=== PATIENT | male | born 1990 | race Two or more races ===

== ENCOUNTER 2024-07-19 09:16 | Emergency (ER) | payer OTHER ==
[~2024-07-19] VITALS: Ht 177.8 cm; Wt 86.2 kg
[2024-07-19] MEDS ORDERED: ONDANSETRON HCL/PF 4 MG/2 ML VIAL ONE (09:36)
[2024-07-19] MEDS ORDERED: FAMOTIDINE/PF INJ 20 MG/2 ML VIAL IV ONE (09:37)
[2024-07-19] MEDS: IV NS 0.9% 1,000 ML BAG IV ONE (09:48)
[2024-07-19] MEDS: ONDANSETRON HCL/PF 4 MG/2 ML VIAL IVP ONE (09:49)
[2024-07-19] MEDS: FAMOTIDINE/PF INJ 20 MG/2 ML VIAL IV ONE (09:49)
[2024-07-19 09:52] LABS: BASOPHILS # (AUTO) 0.1 K/uL (0.0-0.2); BASOPHILS % (AUTO) 0.6 % (0.0-2.0); HEMATOCRIT 47 % (39-51); HEMOGLOBIN 16.5 g/dL (13.5-17.5); LYMPHOCYTES # (AUTO) 1.3 K/uL (0.8-4.8); LYMPHOCYTES % (AUTO) 13.8 % (20.0-44.0); MEAN CORPUSCULAR HEMOGLOBIN 31 PG (26.0-33.0); MEAN CORPUSCULAR HGB CONC 35 g/dl (31.0-36.0); MEAN CORPUSCULAR VOLUME 87 fL (80-96); MONOCYTES # (AUTO) 0.7 K/uL (0.1-1.30); MONOCYTES % (AUTO) 7.5 % (2.0-12.0); NEUTROPHILS # (AUTO) 7.2 K/uL (1.8-8.9); NEUTROPHILS % (AUTO) 78.1 % (43.0-81.0); PLATELET COUNT (AUTO) 500 K/uL (150-450); RED BLOOD CELL COUNT(AUTO) 5.39 MIL/uL (4.5-6.0); RED CELL DISTRIBUTION WIDTH 13.9 % (11.5-15.0); WHITE BLOOD COUNT (AUTO) 9.2 K/uL (4.3-11.0)
[2024-07-19 10:13] LABS: ALBUMIN 4.8 g/dL (3.4-5.0); BILIRUBIN,DIRECT 0.3 mg/dL (0.0-0.2); BILIRUBIN,TOTAL 1.4 mg/dL (0.2-1.0); CALCIUM, SERUM 9.7 mg/dL (8.5-10.1); CREATININE 1.5 mg/dL (0.6-1.3); POTASSIUM 2.9 mmol/L (3.5-5.1); TOTAL PROTEIN, SERUM 9.3 g/dL (6.4-8.2)
[2024-07-19] MEDS ORDERED: POTASSIUM CHLORIDE 20 MEQ POWDER PACKET ONE (10:37)
[2024-07-19] MEDS: POTASSIUM CHLORIDE 20 MEQ POWDER PACKET PO ONE (10:43)
[2024-07-19] MEDS ORDERED: ONDA4TAB5 PO (10:48)
[2024-07-19 11:03] VITALS: BP 145/97; TEMP 98.5; O2SAT 99
== END 2024-07-19 11:04 | disposition home or self-care (01) ==
LOC: ER 09:28
DX: R11.2 Nausea with vomiting, unspecified (principal); R10.84 Generalized abdominal pain
CPT/HCPCS: 99285; 74176; 96374; 96361; 96375; 85025; 80048; 83690; 80076; J3490; J2405; J7030

== ENCOUNTER 2024-07-20 13:39 | Emergency (ER) | payer OTHER ==
[~2024-07-20] VITALS: Ht 175.3 cm; Wt 83.0 kg
[~2024-07-20 13:39] MED LIST: ONDA4TAB5 PO
[2024-07-20] MEDS ORDERED: FAMOTIDINE/PF INJ 20 MG/2 ML VIAL IV ONE (14:37)
[2024-07-20] MEDS ORDERED: ONDANSETRON HCL/PF 4 MG/2 ML VIAL ONE (14:37)
[2024-07-20 14:44] LABS: BASOPHILS % (AUTO) 0.4 % (0.0-2.0); EOSINOPHILS % (AUTO) 0.1 % (0.0-6.0); HEMATOCRIT 48 % (39-51); HEMOGLOBIN 16.7 g/dL (13.5-17.5); LYMPHOCYTES # (AUTO) 1.6 K/uL (0.8-4.8); LYMPHOCYTES % (AUTO) 14.2 % (20.0-44.0); MEAN CORPUSCULAR HEMOGLOBIN 30 PG (26.0-33.0); MEAN CORPUSCULAR HGB CONC 35 g/dl (31.0-36.0); MEAN CORPUSCULAR VOLUME 86 fL (80-96); MONOCYTES # (AUTO) 0.9 K/uL (0.1-1.30); MONOCYTES % (AUTO) 7.7 % (2.0-12.0); NEUTROPHILS # (AUTO) 8.7 K/uL (1.8-8.9); NEUTROPHILS % (AUTO) 77.6 % (43.0-81.0); PLATELET COUNT (AUTO) 477 K/uL (150-450); RED BLOOD CELL COUNT(AUTO) 5.55 MIL/uL (4.5-6.0); RED CELL DISTRIBUTION WIDTH 13.7 % (11.5-15.0); WHITE BLOOD COUNT (AUTO) 11.2 K/uL (4.3-11.0)
[2024-07-20] MEDS: ONDANSETRON HCL/PF 4 MG/2 ML VIAL IVP ONE (14:53)
[2024-07-20] MEDS: IV LR 1000 ML 1,000 ML BAG IV ONE (14:53)
[2024-07-20] MEDS: FAMOTIDINE/PF INJ 20 MG/2 ML VIAL IV ONE (14:53)
[2024-07-20 14:59] LABS: ALBUMIN 5.1 g/dL (3.4-5.0); BILIRUBIN,DIRECT 0.6 mg/dL (0.0-0.2); BILIRUBIN,TOTAL 2.2 mg/dL (0.2-1.0); CREATININE 1.2 mg/dL (0.6-1.3); TOTAL PROTEIN, SERUM 9.5 g/dL (6.4-8.2)
[2024-07-20 15:21] LABS: POTASSIUM 2.8 mmol/L (3.5-5.1)
[2024-07-20] MEDS ORDERED: POTASSIUM CHLORIDE 20 MEQ TAB.PRT.SR PO ONE (15:47)
[2024-07-20] MEDS ORDERED: POTASSIUM CL. PREMIX PERIPHER. 50 ML ONE (15:47)
[2024-07-20] MEDS: POTASSIUM CHLORIDE 10 MEQ/50 ML PREMIXED IVPB FOR PERIPHERAL LINE IV ONE (16:00)
[2024-07-20] MEDS: POTASSIUM CHLORIDE 20 MEQ TAB.PRT.SR PO ONE (16:00)
[2024-07-20 18:18] VITALS: BP 139/88; TEMP 98.3; O2SAT 97
== END 2024-07-20 18:18 | disposition home or self-care (01) ==
LOC: ER 13:39
DX: R11.2 Nausea with vomiting, unspecified (principal); E87.6 Hypokalemia; I10 Essential (primary) hypertension
CPT/HCPCS: 99285; 96365; 76700; 96375; 96361; 85025; 80048; 83690; 80076; 36415; J3490; J2405; J7120 ×2; J3480

== ENCOUNTER 2025-03-17 18:02 | Emergency (ER) | payer MEDICAID ==
[~2025-03-17] VITALS: Ht 175.3 cm; Wt 86.2 kg
[2025-03-17] MEDS ORDERED: ONDANSETRON 4 MG TAB.RAPDIS ONE (18:54)
[2025-03-17] MEDS: PHENOBARBITAL SODIUM 780 MG in IV NS 0.9% 100 ML IV ONE (19:00)
[2025-03-17] MEDS: IV NS 0.9% 1,000 ML BAG IV ONE (19:02)
[2025-03-17] MEDS: ONDANSETRON 4 MG TAB.RAPDIS PO ONE (19:04)
[2025-03-17 19:07] LABS: PLATELET COUNT (AUTO) 391 K/uL (150-450); RED BLOOD CELL COUNT(AUTO) 4.93 MIL/uL (4.5-6.0); RED CELL DISTRIBUTION WIDTH 14.1 % (11.5-15.0); WHITE BLOOD COUNT (AUTO) 11.0 K/uL (4.3-11.0)
[2025-03-17 19:16] LABS: CALCIUM, SERUM 8.9 mg/dL (8.5-10.1); CREATININE 1.2 mg/dL (0.6-1.3); SODIUM SERUM 135 mmol/L (136-145); UREA NITROGEN, BLOOD 20 mg/dL (7-18)
[2025-03-17 19:22] LABS: ALCOHOL, BLOOD < 3 mg/dL (0-10); ASPARTATE AMINOTRANSFERASE 17 U/L (15-37); TOTAL PROTEIN, SERUM 8.9 g/dL (6.4-8.2)
[2025-03-17] MEDS ORDERED: PHENOBARBITAL SODIUM 130 MG/ML VIAL ONE (19:22)
[2025-03-17] MEDS ORDERED: LORAZEPAM INJ 2 MG/ML VIAL ONE (19:39)
[2025-03-17] MEDS: POTASSIUM CHLORIDE 20 MEQ TAB.PRT.SR PO ONE (20:00)
[2025-03-17] MEDS: LORAZEPAM INJ 2 MG/ML VIAL IV ONE (20:10)
[2025-03-17] MEDS ORDERED: ONDA4TAB5 PO (21:36)
[2025-03-17] MEDS ORDERED: POTASSIUM CHLORIDE 20 MEQ TAB.PRT.SR PO ONE (22:02)
[2025-03-17 22:12] VITALS: BP 131/84; TEMP 97.9; O2SAT 99
== END 2025-03-17 22:12 | disposition home or self-care (01) ==
LOC: ER 18:04
DX: F10.939 Alcohol use, unspecified with withdrawal, unspecified (principal); I10 Essential (primary) hypertension; E87.6 Hypokalemia; Z79.899 Other long term (current) drug therapy; Y90.9 Presence of alcohol in blood, level not specified
CPT/HCPCS: 99285; 96365; 96366; 93005; 76705; 85025; 80048; 83690; 80076; 36415; 84484; 80143; 80320; J2060; J2560 ×2; J7030; J7040; Q0162; G0480